=== PATIENT | female | born 1970 | race Caucasian/White ===

== ENCOUNTER 2024-12-23 17:37 | Emergency (ER) | payer OTHER ==
[~2024-12-23] VITALS: Ht 172.7 cm; Wt 75.0 kg
[2024-12-23 17:41] VITALS: PULSE 114; RESP 16; O2SAT 100
[2024-12-23 17:59] VITALS: BP 132/96; TEMP 36.9; O2SAT 100
[2024-12-23 18:50] LABS: BASOPHILS % 0.9 % (0.0-2.0); EOSINOPHILS % 3.1 % (0.0-5.0); HEMATOCRIT. 44.5 % (36.0-48.0); HEMOGLOBIN. 14.6 g/dL (12.0-16.0); LYMPHOCYTES % 30.9 % (20.0-50.0); MEAN PLATELET VOLUME 8.7 fl (7.4-10.4); MONOCYTES % 10.3 % (2.0-8.0); NEUTROPHILS % 54.8 % (40.0-76.0); PLATELET 225 x1000/uL (130-400); RED BLOOD CELL COUNT 4.90 mill/uL (4.2-5.4); RED CELL DISTRIBUTION WIDTH 14.0 % (11.6-14.6)
[2024-12-23 19:05] LABS: CREATININE 0.8 mg/dL (0.6-1.0); UREA NITROGEN BLOOD 8 mg/dL (9-23)
[2024-12-23 21:24] LABS: CLARITY URINE CLEAR (CLEAR); COLOR URINE YELLOW (YELLOW); PH URINE 8.5 (4.5-8.0); SPECIFIC GRAVITY URINE 1.014 (1.005-1.030)
[2024-12-23 21:25] LABS: GLUCOSE URINE NEGATIVE (NEGATIVE); KETONES URINE TRACE (NEGATIVE); LEUKOCYTE ESTERASE URINE 2+ (NEGATIVE); NITRITE URINE NEGATIVE (NEGATIVE); OCCULT BLOOD URINE NEGATIVE (NEGATIVE); PROTEIN URINE NEGATIVE (NEGATIVE); UROBILINOGEN URINE 0.2 E.U./dL (0.2-1.0)
[2024-12-23 21:27] LABS: RBC URINE NONE SEEN /hpf (0-2)
[2024-12-23 21:28] LABS: BACTERIA URINE 1+; SQUAMOUS EPITHELIAL CELL URINE FEW /lpf (RARE/1+)
[2024-12-23 21:31] LABS: UCG KIT LOT# 946166; UCG SCREEN INDETERMINATE
[2024-12-23 22:14] LABS: HCG SCREEN POSITIVE
[2024-12-23] MEDS ORDERED: CEPH500C2 MT (23:51)
== END 2024-12-23 23:58 | disposition left against medical advice (07) ==
LOC: ER 17:37
DX: F41.9 Anxiety disorder, unspecified (principal); Z91.040 Latex allergy status; Z90.710 Acquired absence of both cervix and uterus; Z79.899 Other long term (current) drug therapy; Z88.2 Allergy status to sulfonamides
CPT/HCPCS: 36415; 80048; 81003; 81025; 84702; 84703; 85025; 93005; 99284